=== PATIENT | female | born 1965 | race Caucasian/White ===

== ENCOUNTER 2019-05-26 16:32 | Emergency (ER) | payer OTHER ==
[2019-05-26 16:40] VITALS: TEMP 98.3; BMI 20.2
--- NOTE | 2019-05-26 16:41 | PDOC ---
Rapid Medical Evaluation Time Seen by Provider: 05/26/19 16:34 Medical Evaluation: Allergies Allergy/AdvReac Type Severity Reaction Status Date / Time No Known Allergies Allergy Verified 07/22/15 12:31 05/26/19 16:34 I have performed a brief in-person evaluation of this patient. The patient presents with a chief complaint of: throat swelling, voice change. Seen at and sent for re-eval Pertinent physical exam findings: speaking in run-on sentences. No stridor noted. OP- WNL. I have ordered the following: nothing The patient will proceed to the ED for further evaluation. Discharge Disposition - Diagnosis Change in voice - Referrals - Patient Instructions - Post Discharge Activity
[2019-05-26] MEDS ORDERED: SODIUM CHLORIDE 0.9% 500 ML INFUS.BAG IV ONE ×2 (17:19→18:00)
[2019-05-26] MEDS ORDERED: ACETAMINOPHEN 1000 MG/100 ML VIAL (NON FORMULARY) IVPB ONE (17:20)
--- NOTE | 2019-05-26 17:26 | PDOC ---
History of Present Illness - General Chief Complaint: Sore Throat Stated Complaint: FACIAL SWELLING Time Seen by Provider: 05/26/19 16:34 History Source: Patient Exam Limitations: No Limitations - History of Present Illness Initial Comments: 05/26/19 17:21 Bushra Marin is a 54y previously healthy F presenting with throat swelling. Had sudden R sided neck pain and throat swelling at 4pm yesterday in the middle of an argument and eating food. Cannot swallow fluids, food, or saliva. Presented to urgent care, took steroids prescribed by clinic, 2 ibuprofen and 2 Aleve. No allergies, vaccines up to date. Last visit to dentist 6mo ago, no dental hx. No botox injections last 6mo. Denies fever, nausea/vomiting, chest pain, SOB, urinary/bowel movement changes. No allergies. Past History - Past Medical History Allergies/Adverse Reactions: Allergies Allergy/AdvReac Type Severity Reaction Status Date / Time No Known Allergies Allergy Verified 05/26/19 16:40 Home Medications: Ambulatory Orders NK [No Known Home Medication] 05/26/19 Cancer: Yes (ovarian cancer) COPD: No Other medical history: LYME DISEASE - Suicide/Smoking/Psychosocial Hx Smoking History: Never smoked Number of Cigarettes Smoked Daily: 4 Hx Alcohol Use: Yes (OCCASIONALLY) Drug/Substance Use Hx: No Review of Systems - Review of Systems Constitutional: No: Chills, Fever, Malaise, Weakness HEENTM: Yes: Throat Swelling, Difficulty Swallowing. No: Eye Pain, Ear Discharge, Nose Pain, Hearing Loss, Throat Pain Respiratory: No: Cough, Orthopnea, Shortness of Breath, Wheezing Cardiac (ROS): No: Chest Pain, Palpitations, Syncope, Chest Tightness ABD/GI: Yes: Poor Appetite (cannot swallow), Poor Fluid Intake (cannot swallow) . No: Abdominal Distended, Constipated, Diarrhea, Nausea, Vomiting, Abdominal cramping : No: Burning, Dysuria, Discharge, Frequency, Flank Pain, Hematuria, Incontinence, Pain Musculoskeletal: Yes: Neck Pain (R submandibular). No: Back Pain, Joint Pain, Joint Swelling, Muscle Pain Integumentary: No: Bruising, Change in Color, Dryness, Flushing, Rash Neurological: No: Headache, Seizure, Tremors, Ataxia Psychiatric: No: Anxiety, Depression, Frequent Crying Endocrine: No: Excessive Sweating, Flushing, Intolerance to Cold, Intolerance to Heat Hematologic/Lymphatic: No: Anemia, Blood Clots, Easy Bleeding *Physical Exam - Vital Signs Last Vital Signs Temp Pulse Resp BP Pulse Ox 98.3 F 95 H 16 127/85 96 05/26/19 16:34 05/26/19 16:34 05/26/19 16:34 05/26/19 16:34 05/26/19 16:34 - Physical Exam General Appearance: Yes: Nourished, Mild Distress HEENT: positive: EOMI, JENNIFER, Hearing Grossly Normal. negative: Normal Voice ( minor lisp), Pale Conjunctivae, Nasal Congestion, Rhinorrhea, Lesions Neck: positive: Tender (R submandibular region). negative: Rigid, Carotid bruit , Decreased range of motion, Lymphadenopathy (R), Lymphadenopathy (L), Thyromegaly Respiratory/Chest: positive: Lungs Clear, Normal Breath Sounds. negative: Chest Tender, Respiratory Distress, Crackles, Rales, Rhonchi, Stridor, Wheezing Cardiovascular: positive: Regular Rhythm, Regular Rate, S1, S2. 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 negative: Facial Droop , Numbness, Confused, Disoriented ED Treatment Course - LABORATORY CBC & Chemistry Diagram: 05/26/19 17:26 05/26/19 17:26 - RADIOLOGY Radiology Studies Ordered: Category Date Time Status NECK CTA [CT] Stat CT Scan 05/26/19 17:18 Ordered Medical Decision Making - Critical Care Time Total Critical Care Time (minutes): 30 Critical Care Statement: The care of this patient involved high complexity decision making to prevent further life threatening deterioration of the patient 's condition and/or to evaluate & treat vital organ system(s) failure or risk of failure. - Medical Decision Making 05/26/19 18:01 Ordered CBC, CMP, neck CTA Given 2L NS for dehydration Dexamethasone, tylenol, lido for pain. No relief. CBC, CMP normal Noted mild mouth droop with forehead sparing, ordered head CT to rule out stroke Bushra Marin is a 54y previously healthy F presenting with throat swelling. Consider cervical nerve palsy despite cranial nerves/neuro intact. Consider retropharyngeal abscess, peritonsillar abscess causing throat swelling and pain despite absence of fever. Unlikely carotid dissection d/t normal vitals. Anticipate d/c pending head CT, neck CT, pain relief Signed out to Dr IRENA Cheung. *DC/Admit/Observation/Transfer Diagnosis at time of Disposition: Change in voice - Referrals - Patient Instructions - Post Discharge Activity
[2019-05-26] MEDS ORDERED: ACETAMINOPHEN INJECTION 100 ML IVPB ONE (17:31)
[2019-05-26] MEDS ORDERED: LIDOCAINE VISCOUS 2% ORAL/TOP 20 ML UNIT-DOSE CUP MM ONE (17:47)
[2019-05-26] MEDS ORDERED: DEXAMETHASONE SOD PHOSPHATE 10 MG/1 ML VIAL IVPUSH ONE (17:47)
[2019-05-26 17:57] LABS: BASO % 0.3 % (0-2.0); HEMATOCRIT 38.1 % (32.4-45.2); HEMOGLOBIN 12.6 GM/dL (10.7-15.3); LYMPH % 10.2 % (8-40); MCH 28.7 pg (25.7-33.7); MCHC 33.2 g/dl (32.0-36.0); MEAN CELL VOLUME 86.3 fl (80-96); MEAN PLT VOLUME 7.7 fl (7.5-11.1); MONO % 1.6 % (3.8-10.2); NEUT % 87.9 % (42.8-82.8); PLATELET COUNT 272 K/MM3 (134-434); RBC 4.41 M/mm3 (3.60-5.2)
[2019-05-26] MEDS ORDERED: LIDOCAINE VISCOUS 2% ORAL/TOP 20 ML UNIT-DOSE CUP ONE (18:08)
[2019-05-26] MEDS ORDERED: DEXAMETHASONE SOD PHOSPHATE 10 MG/1 ML VIAL ONE (18:08)
--- NOTE | 2019-05-26 18:17 | PDOC ---
Documentation entered by Derrek Lopez SCRIBE, acting as scribe for Milan Pina MD. Milan Pina MD: This documentation has been prepared by the John clifton Joel, SCRIBE, under my direction and personally reviewed by me in its entirety. I confirm that the documentation accurately reflects all work, treatment, procedures, and medical decision making performed by me. Attending Attestation - Resident Resident Name: Maurice Connelly - ED Attending Attestation I have performed the following: I have examined & evaluated the patient, The case was reviewed & discussed with the resident, I agree w/resident's findings & plan, Exceptions are as noted - HPI HPI: 05/26/19 17:21 The patient is a 54 year old female with a significant PMH of ovarian CA and Botox use who presents to the emergency department for evaluation of right sided throat pain since 4PM yesterday. The patient states being in an argument yesterday while eating a sandwich, after which she experienced a gradual onset of right side throat and jaw pain. She also states she has had difficulty eating or drinking because of pain. She reports visiting Urgent Care today and was prescribed prednisone 20mg, which did not help. The patient denies chest pain, shortness of breath, headache and dizziness. Denies fever, chills, nausea, vomit, diarrhea and constipation. Denies dysuria, frequency, urgency and hematuria. Allergies: NKA Past surgical history: 3x. Hysterectomy Social history: Occasional alcohol use. No reported cigarette or drug use. - Physicial Exam PE: 05/26/19 17:21 GENERAL: Awake, alert, and fully oriented, in no acute distress. HEAD: No signs of trauma EYES: PERRLA, EOMI, sclera anicteric, conjunctiva clear ENT: Auricles normal inspection, hearing grossly normal, nares patent, oropharynx clear without exudates. Moist mucosa NECK: + TTP R submandibular lymph node, no stepoffs, Normal ROM, supple, no lymphadenopathy, JVD, or masses LUNGS: Breath sounds equal, clear to auscultation bilaterally. No wheezes, and no crackles HEART: Regular rate and rhythm, normal S1 and S2, no murmurs, rubs or gallops ABDOMEN: Soft, nontender, normoactive bowel sounds. No guarding, no rebound. No masses EXTREMITIES: Normal range of motion, no edema. No clubbing or cyanosis. No cords , erythema, or tenderness NEUROLOGICAL: + Mild flattening of R labial fold, Cranial nerves otherwise intact. 5/5 strength and sensation in all extremities, Normal speech, normal gait, normal cerebellar function SKIN: Warm, Dry, normal turgor, no rashes or lesions noted. - Medical Decision Making 05/26/19 18:15 54 F with sore throat/neck pain and difficulty swallowing. Exam notable for mild flattening of R labial fold. Possible cardenas's palsy vs other peripheral nerve palsy. No other neuro deficit to suggest CVA. No tongue or uvula swelling, no evidence of airway obstruction on exam. Lungs clear without stridor. However, given severity of pain, will obtain CT with contrast to r/o abscess vs dissection or other cause of peripheral nerve palsy. - Labs - CT head - CTA neck - Decadron, tylenol, viscous lidocaine 05/26/19 18:43 Labs wnl Pt reassessed - now with resolution of pain after medications. However, pt reporting persistent difficulty swallowing and chewing. CT head and CTA pending. Pt signed out to oncoming attending at 7PM, pending CT result and possible neuro consultation.
[2019-05-26 18:31] LABS: ALBUMIN 4.1 g/dl (3.4-5.0); BILIRUBIN,TOTAL 0.4 mg/dL (0.2-1); BLOOD UREA NITROGEN 12.1 mg/dL (7-18); CREATININE 0.8 mg/dL (0.55-1.3); POTASSIUM 4.4 mmol/L (3.5-5.1); TOT PROT 7.7 g/dl (6.4-8.2)
--- NOTE | 2019-05-26 19:04 | PDOC ---
*Physical Exam - Vital Signs Last Vital Signs Temp Pulse Resp BP Pulse Ox 98.3 F 95 H 16 127/85 96 05/26/19 16:34 05/26/19 16:34 05/26/19 16:34 05/26/19 16:34 05/26/19 16:34 <Arleth Jim - Last Filed: 05/26/19 21:23> - Vital Signs Last Vital Signs Temp Pulse Resp BP Pulse Ox 98.3 F 95 H 16 127/85 96 05/26/19 16:34 05/26/19 16:34 05/26/19 16:34 05/26/19 16:34 05/26/19 16:34 - Physical Exam General Appearance: Yes: Nourished, Appropriately Dressed, Mild Distress HEENT: positive: Muffled/Hoarse voice, Pharyngeal Erythema, Nasal Congestion, Rhinorrhea. negative: Normal ENT Inspection, Normal Voice Neck: positive: Tender (R submandibular tenderness), Trachea midline, Normal Thyroid, Supple, Decreased range of motion Respiratory/Chest: positive: Lungs Clear, Normal Breath Sounds. negative: Chest Tender, Respiratory Distress, Accessory Muscle Use Cardiovascular: positive: Regular Rhythm, Regular Rate. negative: Edema, Murmur Gastrointestinal/Abdominal: positive: Normal Bowel Sounds, Soft. negative: Organomegaly Musculoskeletal: positive: Normal Inspection Extremity: positive: Normal Capillary Refill, Normal Inspection, Normal Range of Motion Integumentary: positive: Normal Color, Dry, Warm Neurologic: positive: Fully Oriented, Alert, Normal Mood/Affect, Normal Response , Facial Droop (R-sided perioral droop) <Maco Cheung - Last Filed: 05/26/19 23:37> ED Treatment Course - LABORATORY CBC & Chemistry Diagram: 05/26/19 17:26 05/26/19 17:26 - ADDITIONAL ORDERS Additional order review: Laboratory Results 05/26/19 17:26 Sodium 139 Potassium 4.4 Chloride 105 Carbon Dioxide 29 Anion Gap 5 L BUN 12.1 Creatinine 0.8 Est GFR (CKD-EPI)AfAm 96.87 Est GFR (CKD-EPI)NonAf 83.58 Random Glucose 116 H Calcium 9.0 Total Bilirubin 0.4 AST 13 L ALT 17 Alkaline Phosphatase 82 Total Protein 7.7 Albumin 4.1 05/26/19 17:26 RBC 4.41 MCV 86.3 MCHC 33.2 RDW 14.0 MPV 7.7 Neutrophils % 87.9 H Lymphocytes % 10.2 Monocytes % 1.6 L Eosinophils % 0.0 Basophils % 0.3 - Medications Given in the ED: ED Medications Discontinued Medications Generic Name Dose Route Start Last Admin Trade Name Cristhianq PRN Reason Stop Dose Admin Acetaminophen 1,000 mg 05/26/19 17:20 05/26/19 17:33 Ofirmev Injection - IVPB 05/26/19 17:21 1,000 mg ONCE ONE Administration Dexamethasone Sodium Phosphate 10 mg 05/26/19 17:47 05/26/19 18:33 Decadron Injection - IVPUSH 05/26/19 17:48 10 mg ONCE ONE Administration Lidocaine HCl 20 ml 05/26/19 17:47 05/26/19 18:33 Xylocaine 2% Viscous Oral - MM 05/26/19 17:48 20 ml ONCE ONE Administration Sodium Chloride 1,000 ml 05/26/19 17:19 05/26/19 17:33 Normal Saline - IV 05/26/19 17:20 1,000 ml ONCE ONE Administration Sodium Chloride 1,000 ml 05/26/19 18:00 05/26/19 18:33 Normal Saline - IV 05/26/19 18:01 1,000 ml ONCE ONE Administration <Arleth Jim - Last Filed: 05/26/19 21:23> - LABORATORY CBC & Chemistry Diagram: 05/26/19 17:26 05/26/19 17:26 - ADDITIONAL ORDERS Additional order review: Laboratory Results 05/26/19 17:26 Sodium 139 Potassium 4.4 Chloride 105 Carbon Dioxide 29 Anion Gap 5 L BUN 12.1 Creatinine 0.8 Est GFR (CKD-EPI)AfAm 96.87 Est GFR (CKD-EPI)NonAf 83.58 Random Glucose 116 H Calcium 9.0 Total Bilirubin 0.4 AST 13 L ALT 17 Alkaline Phosphatase 82 Total Protein 7.7 Albumin 4.1 05/26/19 17:26 RBC 4.41 MCV 86.3 MCHC 33.2 RDW 14.0 MPV 7.7 Neutrophils % 87.9 H Lymphocytes % 10.2 Monocytes % 1.6 L Eosinophils % 0.0 Basophils % 0.3 - Medications Given in the ED: ED Medications Discontinued Medications Generic Name Dose Route Start Last Admin Trade Name Freq PRN Reason Stop Dose Admin Acetaminophen 1,000 mg 05/26/19 17:20 05/26/19 17:33 Ofirmev Injection - IVPB 05/26/19 17:21 1,000 mg ONCE ONE Administration Dexamethasone Sodium Phosphate 10 mg 05/26/19 17:47 05/26/19 18:33 Decadron Injection - IVPUSH 05/26/19 17:48 10 mg ONCE ONE Administration Lidocaine HCl 20 ml 05/26/19 17:47 05/26/19 18:33 Xylocaine 2% Viscous Oral - MM 05/26/19 17:48 20 ml ONCE ONE Administration Sodium Chloride 1,000 ml 05/26/19 17:19 05/26/19 17:33 Normal Saline - IV 05/26/19 17:20 1,000 ml ONCE ONE Administration Sodium Chloride 1,000 ml 05/26/19 18:00 05/26/19 18:33 Normal Saline - IV 05/26/19 18:01 1,000 ml ONCE ONE Administration <Maco Cheung - Last Filed: 05/26/19 23:37> Medical Decision Making - Medical Decision Making 05/26/19 19:02 Signed out to me by Dr. Connelly. 1 day throat swelling and pain. Afebrile. Neck CTA pending. Possible cervical nerve palsy vs. peritonsillar abscess. Head CT non-con to r/o stroke. Monitor pain relief, got tylenol, lido, 2L fluids. 05/26/19 19:30 CT Head shows no acute intracranial abnormalities. Patient re-assessed, still having R jaw numbness and difficulty speaking, some R neck submandibular tenderness to palpation and reactive lymph node. Facial droop limited to R mouth, no forehead involvement makes Nagy palsy less likely. Patient speaking, airway patent s/p steroids. 05/26/19 21:19 CTA shows no peritonsillar abscess, but abnormal R internal carotid anatomy with bifurcation at the C2 level running through the hypoglossal canal and impinging on the hypoglossal nerve. Airway stable s/p steroids, no abscess noted, giving toradol for pain control. Discharge home with f/u neurology Dr. Carty given persistent R nasolabial fold flattening concerning for stroke and CTA findings of hypoglossal nerve compression. <Maco Cheung - Last Filed: 05/26/19 23:37> *DC/Admit/Observation/Transfer <Arleth Jim - Last Filed: 05/26/19 21:23> <Christiano Cheungur - Last Filed: 05/26/19 23:37> Diagnosis at time of Disposition: Change in voice, Hypoglossal neuropathy - Discharge Dispostion Disposition: HOME Condition at time of disposition: Stable - Referrals Referrals: James Carty DO [Staff Physician] - - Patient Instructions Printed Discharge Instructions: Neuropathic Pain Additional Instructions: Today we evaluated you for throat pain and mouth numbness. We examined your blood for signs of infection and electrolyte abnormalities, and none were noted. We gave you a steroid called dexamethasone to help resolve your throat swelling, gave you 2L of fluids by IV, and some lidocaine to help numb your throat. We obtained a CT scan of your head to evaluate for a possible stroke, and no signs of stroke were noted. We also obtained a CT angiogram of your neck to evaluate you for peritonsillar abscess as a cause of your neck pain, but none was seen. However, you were found to have an abnormality in the anatomy of the arteries in your neck that is compressing on a nerve that runs by your thyroid, that may be a contributor to your symptoms. Please follow-up with a neurologist for further evaluation of your mouth pain and numbness. We have included a referral to Dr. Carty, one of our neurologists. If you experience further neck pain, have worsening breathing or mouth pain, or have fevers, chills, nausea, vomiting, any worsening pain or inability to move your face or further drooping if your face, please return to an emergency room immediately.
[2019-05-26] MEDS ORDERED: KETOROLAC TROMETHAMINE 30 MG/1 ML VIAL IVPUSH ONE (21:13)
[2019-05-26] MEDS ORDERED: KETOROLAC TROMETHAMINE 30 MG/1 ML VIAL ONE (21:18)
--- NOTE | 2019-05-26 21:18 | PDOC ---
*Physical Exam - Vital Signs Last Vital Signs Temp Pulse Resp BP Pulse Ox 98.3 F 95 H 16 127/85 96 05/26/19 16:34 05/26/19 16:34 05/26/19 16:34 05/26/19 16:34 05/26/19 16:34 ED Treatment Course - LABORATORY CBC & Chemistry Diagram: 05/26/19 17:26 05/26/19 17:26 - ADDITIONAL ORDERS Additional order review: Laboratory Results 05/26/19 17:26 Sodium 139 Potassium 4.4 Chloride 105 Carbon Dioxide 29 Anion Gap 5 L BUN 12.1 Creatinine 0.8 Est GFR (CKD-EPI)AfAm 96.87 Est GFR (CKD-EPI)NonAf 83.58 Random Glucose 116 H Calcium 9.0 Total Bilirubin 0.4 AST 13 L ALT 17 Alkaline Phosphatase 82 Total Protein 7.7 Albumin 4.1 05/26/19 17:26 RBC 4.41 MCV 86.3 MCHC 33.2 RDW 14.0 MPV 7.7 Neutrophils % 87.9 H Lymphocytes % 10.2 Monocytes % 1.6 L Eosinophils % 0.0 Basophils % 0.3 - Medications Given in the ED: ED Medications Discontinued Medications Generic Name Dose Route Start Last Admin Trade Name Elke PRN Reason Stop Dose Admin Acetaminophen 1,000 mg 05/26/19 17:20 05/26/19 17:33 Ofirmev Injection - IVPB 05/26/19 17:21 1,000 mg ONCE ONE Administration Dexamethasone Sodium Phosphate 10 mg 05/26/19 17:47 05/26/19 18:33 Decadron Injection - IVPUSH 05/26/19 17:48 10 mg ONCE ONE Administration Lidocaine HCl 20 ml 05/26/19 17:47 05/26/19 18:33 Xylocaine 2% Viscous Oral - MM 05/26/19 17:48 20 ml ONCE ONE Administration Sodium Chloride 1,000 ml 05/26/19 17:19 05/26/19 17:33 Normal Saline - IV 05/26/19 17:20 1,000 ml ONCE ONE Administration Sodium Chloride 1,000 ml 05/26/19 18:00 05/26/19 18:33 Normal Saline - IV 05/26/19 18:01 1,000 ml ONCE ONE Administration Medical Decision Making - Medical Decision Making 05/26/19 21:13 Patient Name: MARIA ISABEL LUZ THIS IS A PRELIMINARY REPORT FROM [facility] EXAM: CT Angiogram (CTA) Cervical arteries: IMAGES: [id number] EXAM DATE AND TIME: 2019-05-26 18:56:55 HISTORY: 54 year old woman: Difficulty swallowing. Evaluate for dissection. COMPARISON: None. TECHNIQUE: CT angiogram (CTA) of the cervical arteries: Thin cut axial images were obtained during the administration of non-ionic iodinated IV contrast. Coronal and sagittal reformatted images were also generated. 100 cc of Omnipaqueadministered. FINDINGS: The great vessels arising off the aortic arch are normal in course and caliber, including the right brachiocephalic, left subclavian, right subclavian arteries. There is variant anatomy of the vertebral and carotid arteries. Both the right and left vertebral arteries are very narrow in diameter as they course of the neck, but maintaining their diameters from the subclavian arteries to the basilar artery at the lower basilar artery is very narrow in diameter. Common carotid and internal carotid arteries are widely patent as they course up the neck. The intracranial internal carotid arteries exhibit normal morphology. 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 The upper basilar artery appears normal in diameter. The imaged portions of the [place], anterior middle and posterior cerebral arteries appear normal in course and diameter. The right and left common carotid arteries, the carotid bulbs, internal and external carotid arteries and both vertebral arteriesappear otherwise unremarkable are normal in course and caliber without evidence of dissection, stenosis or occlusion. There are no hemodynamically significant stenoses of the common or internal carotid arteries by NASCET criteria. There are no dominant masses within the neck. There is no evidence of adenopathy. The pharyngeal, laryngeal and tracheal airways are all widely patent. The thyroid lobes appear normal in size and contour. 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 This large diameter artery may be compressing and possibly compromising neural functioning of the hypoglossal nerve. The upper basilar artery appears normal in diameter. The intracranial internal carotid arteries and the cerebral arteries appear otherwise normal in caliber. The vertebral arteries are narrow in diameter as they course up the neck, supplying a very narrow lower basilar artery. The common and internal carotid arteries are normal in diameter at the course of the neck. The [place] and cerebral arteries appear normal in diameter.. One or more of the following dose reduction techniques were used: automated exposure control, adjustment of the mA and/or kV according to patient size, use of iterative reconstructive technique. THIS DOCUMENT HAS BEEN ELECTRONICALLY SIGNED 05/26/19 21:14 *DC/Admit/Observation/Transfer Diagnosis at time of Disposition: Change in voice, Hypoglossal neuropathy - Discharge Dispostion Disposition: HOME Condition at time of disposition: Stable Decision to Admit order: No - Referrals Referrals: James Carty DO [Staff Physician] - - Patient Instructions Printed Discharge Instructions: Neuropathic Pain Additional Instructions: Today we evaluated you for throat pain and mouth numbness. We examined your blood for signs of infection and electrolyte abnormalities, and none were noted. We gave you a steroid called dexamethasone to help resolve your throat swelling, gave you 2L of fluids by IV, and some lidocaine to help numb your throat. We obtained a CT scan of your head to evaluate for a possible stroke, and no signs of stroke were noted. Please follow-up with a neurologist for further evaluation of your mouth pain and numbness. If you experience further neck pain, have worsening breathing or mouth pain, or have fevers, chills, nausea, vomiting, any worsening pain or inability to move your face or further drooping if your face, please return to an emergency room immediately. - Post Discharge Activity
[2019-05-26 21:34] VITALS: BP 144/70; PULSE 68
== END 2019-05-26 21:41 | disposition home or self-care (01) ==
LOC: JER 16:32
PROC: 3E0333Z Introduction of Anti-inflammatory into Peripheral Vein, Percutaneous Approach (ICD-10-PCS; principal; 2019-05-26)
PROC: 3E0337Z Introduction of Electrolytic and Water Balance Substance into Peripheral Vein, Percutaneous Approach (ICD-10-PCS; 2019-05-26)
PROC: 3E033NZ Introduction of Analgesics, Hypnotics, Sedatives into Peripheral Vein, Percutaneous Approach (ICD-10-PCS; 2019-05-26)
DX: G52.3 Disorders of hypoglossal nerve (principal); E86.0 Dehydration; Z85.43 Personal history of malignant neoplasm of ovary
CPT/HCPCS: 36415; 70450-TC; 70498-TC; 80053; 85025; 99281-25; J0131; J1100

== ENCOUNTER 2023-01-23 14:52 | Emergency (ER) | payer OTHER ==
[2023-01-23 15:16] VITALS: BP 116/91; PULSE 77; RESP 18; TEMP 97.9; BMI 25.5
[2023-01-23] MEDS ORDERED: KETOROLAC TROMETHAMINE 30 MG/1 ML VIAL IM ONE (15:53)
[2023-01-23] MEDS ORDERED: KETOROLAC TROMETHAMINE 30 MG/1 ML VIAL ONE (15:57)
[2023-01-23] MEDS ORDERED: LIDOCAINE 5% TOPICAL PATCH TP ONE (18:40)
[2023-01-23] MEDS ORDERED: METHOCARBAMOL 500 MG TABLET PO ONE (18:41)
[2023-01-23] MEDS ORDERED: METHOCARBAMOL 500 MG TABLET ONE (18:42)
[2023-01-23] MEDS ORDERED: LIDOCAINE 5% TOPICAL PATCH ONE (18:42)
[2023-01-23] MEDS ORDERED: LIDOCAINE PATCH REMOVAL MC SCH (22:00)
== END 2023-01-23 19:00 | disposition home or self-care (01) ==
LOC: FER 14:52
PROC: 3E0233Z Introduction of Anti-inflammatory into Muscle, Percutaneous Approach (ICD-10-PCS; principal; 2023-01-23)
DX: S46.911A Strain of unspecified muscle, fascia and tendon at shoulder and upper arm level, right arm, initial encounter (principal); R55 Syncope and collapse; R11.0 Nausea; V47.5XXA Car driver injured in collision with fixed or stationary object in traffic accident, initial encounter; V49.50XA Passenger injured in collision with unspecified motor vehicles in traffic accident, initial encounter
CPT/HCPCS: 70450-TC; 71046-TC-FY; 73030-TC-RT-FY; 99285-25